=== PATIENT | male | born 1945 | race Caucasian/White ===

== ENCOUNTER 2017-03-13 15:58 | Emergency (ER) | payer OTHER ==
[2017-03-13 16:16] VITALS: TEMP 98
[2017-03-13 16:41] LABS: % IMMATURE GRANULYOCYTES 0.2 % (0.0-1.1); ABSOLUTE IMMATURE GRANULOCYTES 0.01 10^3/uL (0.00-0.10); ADD DIFF? NO; ADD MORPH? NO; ADD SCAN? NO; ATYPICAL LYMPHOCYTE FLAG 0 (0-99); FRAGMENT RBC FLAG 0 (0-99); HEMATOCRIT 42.6 % (40.0-51.0); HEMOGLOBIN 14.4 g/dL (13.7-17.5); LEFT SHIFT FLG 0 (0-99); LIPEMIA HEMOLYSIS FLAG 90 (0-99); MEAN CELL HEMOGLOBIN 30.8 pg (27.9-34.1); MEAN CELL HEMOGLOBIN CONCENTR. 33.8 g/dL (32.4-36.7); MEAN PLATELET VOLUME 8.8 fL (8.7-11.7); PLATELET CLUMPS FLAG 0 (0-99); PLATELET COUNT 154 10^3/uL (150-400); RED BLOOD CELL COUNT 4.68 10^6/uL (4.40-6.38); RED CELL DISTRIBUTION WIDTH 13.2 % (11.5-15.2)
--- NOTE | 2017-03-13 16:46 | CPEKG ---
Heart Rate: 60 RR Interval: 1000 P-R Interval: 164 QRSD Interval: 92 QT Interval: 436 QTC Interval: 436 P [place]: 48 QRS [place]: 46 T Wave [place]: 48 EKG Severity - NORMAL ECG - EKG Impression: SINUS RHYTHM Electronically Signed By: Lobito Santamaria 13-Mar-2017 18:49:30
[2017-03-13 16:47] LABS: CALCIUM 9.4 mg/dL (8.5-10.4); CREATININE 1.7 mg/dL (0.7-1.3); POTASSIUM 4.2 mEq/L (3.5-5.2)
--- NOTE | 2017-03-13 17:34 | EDPHY ---
H & P Stated Complaint: c/o inc. higher blood pressure over last month Time Seen by Provider: 03/13/17 16:20 HPI/ROS: This patient reports steady increase in his home monitoring of his blood pressure is. 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 In consultation with his primary care physician, Dr. Morejon while he stopped his lisinopril and amlodipine in June of this year and initially had normotensive blood pressure is 1 30s systolic but reports that over the past 2 months he has had steady gradual increase in his blood pressure is within average systolic pressure in January of 144 and over the past week has been steadily increasing with systolics from 150s up to a bit over 200. He does not careful record the diastolic pressures. He denies any associated somatic symptoms other than the longstanding intermittent lightheadedness. The patient has a significant history of vascular pathology including AAA with graft and iliac bypass is. 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 He reports compliance with this. ROS: No fevers or chills. No fatigue or other constitutional complaints. HEENT: No URI symptoms or other complaints Neuro: No headache. No focal complaints. No confusion Pulmonary: No dyspnea Cardiovascular: No chest pain. No heart palpitations. He reports some claudication symptoms in his lower extremity primarily left since his most recent iliac graft last year. No recent change in the severity of this which is mild. He continues to follow up with his vascular surgeon regarding the symptoms. No recent peripheral edema. GI: No complaints. No abdominal pain. No nausea. No rectal bleeding. : No hematuria. No flank pain. Integumentary: No rash. Endocrine: No complaints Complete review of symptoms is otherwise negative Source: Patient Exam Limitations: No limitations - Medical/Surgical History Hx Asthma: No Hx Chronic Respiratory Disease: No Hx Diabetes: No Hx Cardiac Disease: No Hx Renal Disease: No Hx Cirrhosis: No Hx Alcoholism: No Hx HIV/AIDS: No Hx Splenectomy or Spleen Trauma: No Other PMH: UTI'S, kidney stone with subsequent surgery for removal 07/2014, aortic embolism, embolism removal sugically, blood infection x 2, graft abscess, - Family History Significant Family History: No pertinent family hx - Social History Smoking Status: Former smoker Alcohol Use: Rarely Drug Use: None Additional Social History: The patient lives in a contemplative spiritual community. - Physical Exam Exam: Vital signs are notable for his hypertension-216/100 other vitals are normal General Appearance: Pleasant 71-year-old male appears younger than his stated age Alert, no distress. Eyes: Pupils equal and round no pallor or injection. ENT, Mouth: Mucous membranes moist. Respiratory: There are no retractions, lungs are clear to auscultation. Cardiovascular: Regular rate and rhythm. No murmur gallop rub. Patient maintains 2+ femoral pulses, popliteal pulses and dorsalis pedis pulses with no pallor in his lower extremities. Appreciate no significant pulsatile masses in his abdomen. Gastrointestinal: Abdomen is soft and nontender, no masses, bowel sounds normal. Surgical scars in mid and lower belly are clean dry intact. Neurological: GCS 15 with no focal deficits. Skin: Warm and dry, no rashes. Musculoskeletal: Neck is supple nontender. Extremities are symmetrical, full range of motion. Psychiatric: Mood and affect normal DIFFERENTIAL DIAGNOSIS: After history and physical exam differential diagnosis was considered for hypertensive urgency versus emergency. Constitutional: Initial Vital Signs Temperature (C) 36.6 C 03/13/17 16:14 Heart Rate 69 03/13/17 16:14 Respiratory Rate 18 03/13/17 16:14 Blood Pressure 216/99 H 03/13/17 16:14 O2 Sat (%) 97 03/13/17 16:14 O2 Delivery Mode Room Air Allergies/Adverse Reactions: No Known Allergies Allergy (Unverified 10/04/14 11:28) Home Medications: Medication Instructions Recorded Amoxil 03/13/17 Metoprolol Tartrate 25 mg PO BID #60 tablet 03/13/17 Medical Decision Making - Diagnostics EKG Interpretation: 12 lead EKG performed shortly after arrival indication hypertension rule out cardiac strain Performed at 4:44 p.m. Sinus rhythm at 60 Intervals: Normal throughout [place]: Normal throughout ST segments: Normal throughout Overall assessment normal EKG for complete read please refer to trace master ED Course/Re-evaluation: IV attempt was made blood was drawn but the IV blew. Patient declines further attempts at IV thereafter. Clonidine 0.2 sublingual with significant improvement in pressure is down to 130s over 80s thereafter. Medical decision making: I counseled patient regarding his lab work which reveals renal insufficiency with a creatinine of 1.7 today up from previous of 1.3. He had elevated BUNs in the past similarly today it is elevated in the high 40s. The patient admits that he typically does not drink enough fluids and feels that he might be mildly dehydrated. However he declines a repeat IV and normal saline bolus preferring oral hydration instead and finishes a large emesis container full of water without difficulty. I counseled him for 10-15 minutes regarding the importance of blood pressure control particularly with his history of AAA and vascular grafts. Given his renal insufficiency will use beta-giorgi rather than Warner inhibitor. I recommended that he start metoprolol 25 twice daily tomorrow as a starting point with close follow up with primary care physician this week for a recheck. After workup today, findings are consistent with hypertensive urgency without evidence of end-organ injury-no evidence of hypertensive emergency. While he does have mild renal insufficiency this is longstanding I think that the mild increase in his creatinine today is likely related to decreased p.o. fluid intake recently. The patient understands the need to return emergency department should he develop significant ongoing hypertension despite the metoprolol. He also understands the need to return should he develop any abdominal pain, back pain or other concerns - Data Points Laboratory Results: Laboratory Results 03/13/17 16:20 03/13/17 16:20 03/13/17 03/13/17 16:20 16:20 WBC 5.53 10^3/uL 10^3/uL (3.80-9.50) RBC 4.68 10^6/uL 10^6/uL (4.40-6.38) Hgb 14.4 g/dL g/dL (13.7-17.5) Hct 42.6 % % (40.0-51.0) MCV 91.0 fL fL (81.5-99.8) MCH 30.8 pg pg (27.9-34.1) MCHC 33.8 g/dL g/dL (32.4-36.7) RDW 13.2 % % (11.5-15.2) Plt Count 154 10^3/uL 10^3/uL (150-400) MPV 8.8 fL fL (8.7-11.7) Neut % (Auto) 60.8 % % (39.3-74.2) Lymph % (Auto) 27.3 % % (15.0-45.0) [place] % (Auto) 9.9 % % (4.5-13.0) Eos % (Auto) 1.6 % % (0.6-7.6) Baso % (Auto) 0.2 % L % (0.3-1.7) Nucleat RBC Rel Count 0.0 % % (0.0-0.2) Absolute Neuts (auto) 3.36 10^3/uL 10^3/uL (1.70-6.50) Absolute Lymphs (auto) 1.51 10^3/uL 10^3/uL (1.00-3.00) Absolute Monos (auto) 0.55 10^3/uL 10^3/uL (0.30-0.80) Absolute Eos (auto) 0.09 10^3/uL 10^3/uL (0.03-0.40) Absolute Basos (auto) 0.01 10^3/uL L 10^3/uL (0.02-0.10) Absolute Nucleated RBC 0.00 10^3/uL 10^3/uL (0-0.01) Immature Gran % 0.2 % % (0.0-1.1) Immature Gran # 0.01 10^3/uL 10^3/uL (0.00-0.10) Sodium 140 mEq/L mEq/L (134-144) Potassium 4.2 mEq/L mEq/L (3.5-5.2) Chloride 107 mEq/L mEq/L (97-110) Carbon Dioxide 22 mEq/l mEq/l (22-31) Anion Gap 11 mEq/L mEq/L (8-16) BUN 43 mg/dL H mg/dL (7-23) Creatinine 1.7 mg/dL H mg/dL (0.7-1.3) Estimated GFR 40 Glucose 89 mg/dL mg/dL (70-100) Calcium 9.4 mg/dL mg/dL (8.5-10.4) Medications Given: Discontinued Medications Clonidine ([place]) 0.2 mg PO EDNOW ONE Stop: 03/13/17 16:39 Last Admin: 03/13/17 16:46 Dose: 0.2 mg Departure - Departure Disposition: Home, Routine, Self-Care Clinical Impression: Hypertensive urgency, Renal insufficiency Condition: Good Instructions: Metoprolol (By mouth), Dehydration (ED), Hypertension (ED) Additional Instructions: Diagnoses: 1. Hypertension 2. Renal insufficiency Plan: Start metoprolol blood pressure medicine as prescribed 1st dose tomorrow morning Drink more fluids. Follow up at the end of the week with either someone in your primary care physician's office or with Dr. Jolley. Call these physicians tomorrow to arrange this appointment. You should also have a recheck of your BUN and creatinine at that time. Return the emergency department for any significant worsening despite the treatment plan Referrals: DEVORA MOREJON [Primary Care Provider] - As per Instructions Avelino Jolley MD [Medical Doctor] - As per Instructions Prescriptions: Metoprolol Tartrate 25 mg PO BID #60 tablet
[2017-03-13 17:46] VITALS: PULSE 57
[2017-03-13 18:27] VITALS: BP 142/75; RESP 16; O2SAT 97
== END 2017-03-13 17:38 | disposition home or self-care (01) ==
LOC: CED 15:58
DX: I16.0 Hypertensive urgency (principal); N28.9 Disorder of kidney and ureter, unspecified; Z87.891 Personal history of nicotine dependence
CPT/HCPCS: 80048-PO; 85025-PO

== ENCOUNTER 2017-05-19 16:45 | Emergency (ER) | payer OTHER ==
[2017-05-19 16:56] VITALS: TEMP 97.9
--- NOTE | 2017-05-19 17:46 | EDPHY ---
H & P Stated Complaint: epigastric burning and abd cramping/hx cardiac surgery Time Seen by Provider: 05/19/17 17:45 HPI/ROS: HPI: This is a 71-year-old male presents with Chief Complaint: epigastric burning and abd cramping/hx cardiac surgery Location: Epigastric Quality: Burning pain Duration: Started at 5:15 a.m. Signs and Symptoms: no fever, + nausea, no vomiting, no hematemesis, no blood in stool, no abdominal bloating, no diarrhea, no back pain, no urinary symptoms , no testicular/groin pain, no indigestion, no chest pain, no shortness of breath Timing: Acute, lasted several hours, resolved after Zantac Severity: Moderate Context: Patient has a history of aortic embolism and thrombectomy, taking statin blood pressure medications, woke up around 5:15 a.m. with epigastric burning moderate pain that radiated down into his groin but denies radiating into his back. Accompanied by nausea but denies chest pain/shortness of breath/ palpitations/extremity edema/vomiting. He reports that he had a salmon salad for yesterday for lunch with citrus and it that he reports upset his stomach. He called his PCP this afternoon around 1 o'clock in the advised him to take full-strength Zantac which he did he reports that his symptoms resolved within 30 min. No prior history of GERD/peptic ulcer disease. Patient reports that he eat 3 meals yesterday and was able to be aches this morning around 9:00 a.m. without any difficulty. He saw his osteopathic physician 1-2 weeks ago and had normal carotid ultrasound and echocardiogram per patient. Records are not available to us in this emergency room. Patient has never had any cardiac history/stress test/CO. Accidentally patient reports that he has not had a good bowel movement today; only small hard balls. Patient takes baby aspirin daily but did not take today. Denies regular NSAID use or regular alcohol use. Modifying Factors: Zantac Comment: ROS: see HPI Constitutional: No fever, no chills, no weight loss Eyes: No blurred vision Respiratory: No shortness of breath, no cough Cardiovascular: No chest pain, no palpitations Gastrointestinal: No nausea, no vomiting, no diarrhea, no hematemesis, no blood in stool Genitourinary: No dysuria, no blood in urine Extremities: No myalgias, no edema Neurologic: No weakness, no numbness Skin: No rashes, no petechiae Hematologic: No bruising, no bleeding MEDICAL/SURGICAL/SOCIAL HISTORY: Medical/surgical history: UTI'S, kidney stone with subsequent surgery for removal 07/2014, aortic embolism, embolism removal sugically, blood infection x 2 , graft abscess, pseudomonas Social history: Unemployed. CONSTITUTIONAL: Nontoxic appearing talkative pleasant soft spoken elderly white male, awake and alert, no obvious distress HEENT: Atraumatic and normocephalic, PERRL, EOMI. Tympanic membranes clear. Oropharynx clear, no exudate and moist pink mucosa. Airway patent. No lymphadenopathy. No meningismus. Cardiovascular: Normal S1/S2, regular rate, regular rhythm, without murmur rub or gallop. PULMONARY/CHEST: Symmetrical and nontender. Clear to auscultation bilaterally. Good air movement. No accessory muscle usage. ABDOMEN: Soft, nondistended, nontender, no rebound, no guarding, no peritoneal signs, no masses or organomegaly. No CVAT. EXTREMITIES: 2/2 pulses, strength 5/5, no deformities, no clubbing, no cyanosis or edema. NEUROLOGICAL: no focal neuro deficits. GCS 15. SKIN: Warm and dry, no erythema. no rash. Good capillary refill. Source: Patient Exam Limitations: No limitations - Personal History Current Tetanus/Diphtheria Vaccine: Unsure - Medical/Surgical History Hx Asthma: No Hx Chronic Respiratory Disease: No Hx Diabetes: No Hx Cardiac Disease: Yes Hx Renal Disease: No Hx Cirrhosis: No Hx Alcoholism: No Hx HIV/AIDS: No Hx Splenectomy or Spleen Trauma: No Other PMH: UTI'S, kidney stone with subsequent surgery for removal 07/2014, aortic embolism, embolism removal sugically, blood infection x 2, graft abscess , pseudomonas - Social History Smoking Status: Former smoker Constitutional: Initial Vital Signs Temperature (C) 36.6 C 05/19/17 16:54 Heart Rate 65 05/19/17 16:54 Respiratory Rate 18 05/19/17 16:54 Blood Pressure 169/66 H 05/19/17 16:54 O2 Sat (%) 98 05/19/17 16:54 O2 Delivery Mode Room Air Allergies/Adverse Reactions: No Known Allergies Allergy (Verified 05/19/17 16:51) Home Medications: Medication Instructions Recorded Metoprolol Tartrate 25 mg PO BID #60 tablet 03/13/17 Bystolic 05/19/17 Levothyroxine 05/19/17 Lisinopril 05/19/17 Moxifloxacin 05/19/17 Pantoprazole Sodium [Protonix 40mg 40 mg PO DAILY #20 tab 05/19/17 (*)] Zantac 05/19/17 Zocor 05/19/17 Medical Decision Making - Diagnostics Imaging Results: Imaging Impressions Chest X-Ray 05/19/17 17:46 Impression: No evidence for acute cardiopulmonary abnormality. Abdomen X-Ray 05/19/17 18:01 Impression: Constipation. Possible ileus left mid abdomen. Chest/Thorax CTA 05/19/17 18:58 Impression: 1. No evidence of pulmonary thromboembolic disease. 2. Mild atelectasis right lung base. 3. Mild chronic anterior wedge compression deformity of a couple lower thoracic vertebral bodies. 4. Evidence of atherosclerotic disease coronary arteries. Results called and discussed with Yee Castellon PA-C, on May 19, 2017 at 1940. ED Course/Re-evaluation: EKG, chest x-ray, labs, IV medications, oral medications ordered Suspect gastritis/peptic ulcer disease as etiology of epigastric pain. Given IV Protonix and GI cocktail Patient's chest pain started approximately 12 hr prior arrival to the emergency room and has self-resolved a with Zantac use; not PCI candidate JOVANNY risk index is low risk for acute coronary syndrome with low risk for 30 day mortality EKG shows no acute ischemic changes Troponin, BNP unremarkable D-dimer elevated; CTA ordered to evaluate for pulmonary embolism Creatinine 1.5; 1 L normal saline ordered; spoke with education technician; will notify once 1 L an and then will order another 1 L post contrast Care by Radiology and CTA chest shows no pulmonary embolism; mild right lower lobe atelectasis but no opacity indicating pneumonia. Second troponin unremarkable. Discharge home with Cardiology follow-up, start Protonix, GERD diet. Blood pressure at discharge was 168/98 This patient was seen under the supervision of my secondary supervising physician. I evaluated care for this patient independently. Discussed this patient with Dr. Pickens who did not see the patient. Patient's presentation, labs/imaging, treatment and plan of care were discussed with secondary supervising physician. Differential Diagnosis: Abdominal pain including but not limited to acute coronary syndrome, pulmonary embolism, peptic ulcer disease, hiatal hernia, appendicitis, cholecystitis, gastritis and urinary tract infection. - Data Points Laboratory Results: Laboratory Results 05/19/17 18:00 05/19/17 18:00 05/19/17 05/19/17 05/19/17 20:05 18:00 18:00 WBC RBC Hgb Hct MCV MCH MCHC RDW Plt Count MPV Neut % (Auto) Lymph % (Auto) [place] % (Auto) Eos % (Auto) Baso % (Auto) Nucleat RBC Rel Count Absolute Neuts (auto) Absolute Lymphs (auto) Absolute Monos (auto) Absolute Eos (auto) Absolute Basos (auto) Absolute Nucleated RBC Immature Gran % Immature Gran # PT 14.1 SEC SEC (12.0-15.0) INR 1.07 (0.83-1.16) APTT 25.8 SEC SEC (23.0-38.0) D-Dimer 7.63 ug/mLFEU H ug/mLFEU (0.00-0.50) Sodium 145 mEq/L mEq/L (135-145) Potassium 5.0 mEq/L mEq/L (3.5-5.2) Chloride 111 mEq/L H mEq/L (97-110) Carbon Dioxide 19 mEq/l L mEq/l (22-31) Anion Gap 15 mEq/L mEq/L (8-16) BUN 36 mg/dL H mg/dL (7-23) Creatinine 1.5 mg/dL H mg/dL (0.7-1.3) Estimated GFR 46 Glucose 96 mg/dL mg/dL (70-100) Calcium 9.3 mg/dL mg/dL (8.5-10.4) Magnesium 2.2 mg/dL mg/dL (1.6-2.3) Total Bilirubin 1.1 mg/dL mg/dL (0.1-1.4) Conjugated Bilirubin 0.4 mg/dL mg/dL (0.0-0.5) Unconjugated Bilirubin 0.7 mg/dL mg/dL (0.0-1.1) AST 23 IU/L IU/L (17-59) ALT 35 IU/L IU/L (21-72) Alkaline Phosphatase 74 IU/L IU/L (38-126) Troponin I < 0.012 ng/mL ng/mL < 0.012 ng/mL ng/mL (0.000-0.034) (0.000-0.034) NT-Pro-B Natriuret Pep 343 pg/mL H pg/mL (0-125) Total Protein 7.4 g/dL g/dL (6.3-8.2) Albumin 4.5 g/dL g/dL (3.5-5.0) Lipase 59 IU/L IU/L (23-300) 05/19/17 18:00 WBC 7.92 10^3/uL 10^3/uL (3.80-9.50) RBC 4.86 10^6/uL 10^6/uL (4.40-6.38) Hgb 14.7 g/dL g/dL (13.7-17.5) Hct 44.0 % % (40.0-51.0) MCV 90.5 fL fL (81.5-99.8) MCH 30.2 pg pg (27.9-34.1) MCHC 33.4 g/dL g/dL (32.4-36.7) RDW 12.8 % % (11.5-15.2) Plt Count 142 10^3/uL L 10^3/uL (150-400) MPV 9.2 fL fL (8.7-11.7) Neut % (Auto) 74.3 % H % (39.3-74.2) Lymph % (Auto) 16.7 % % (15.0-45.0) [place] % (Auto) 8.2 % % (4.5-13.0) Eos % (Auto) 0.4 % L % (0.6-7.6) Baso % (Auto) 0.1 % L % (0.3-1.7) Nucleat RBC Rel Count 0.0 % % (0.0-0.2) Absolute Neuts (auto) 5.89 10^3/uL 10^3/uL (1.70-6.50) Absolute Lymphs (auto) 1.32 10^3/uL 10^3/uL (1.00-3.00) Absolute Monos (auto) 0.65 10^3/uL 10^3/uL (0.30-0.80) Absolute Eos (auto) 0.03 10^3/uL 10^3/uL (0.03-0.40) Absolute Basos (auto) 0.01 10^3/uL L 10^3/uL (0.02-0.10) Absolute Nucleated RBC 0.00 10^3/uL 10^3/uL (0-0.01) Immature Gran % 0.3 % % (0.0-1.1) Immature Gran # 0.02 10^3/uL 10^3/uL (0.00-0.10) PT INR APTT D-Dimer Sodium Potassium Chloride Carbon Dioxide Anion Gap BUN Creatinine Estimated GFR Glucose Calcium Magnesium Total Bilirubin Conjugated Bilirubin Unconjugated Bilirubin AST ALT Alkaline Phosphatase Troponin I NT-Pro-B Natriuret Pep Total Protein Albumin Lipase Medications Given: Discontinued Medications Al Hydroxide/Mg Hydroxide (Maalox Susp) 30 ml PO ONCE ONE Stop: 05/19/17 17:57 Last Admin: 05/19/17 18:04 Dose: 30 ml Hyoscyamine Sulfate (Levsin, Hyomax-Sl) 0.25 mg PO ONCE ONE Stop: 05/19/17 17:57 Last Admin: 05/19/17 18:04 Dose: 0.25 mg Sodium Chloride (Ns) 1,000 mls @ 0 mls/hr IV EDNOW ONE; Wide [place] PRN Reason: Protocol Stop: 05/19/17 18:18 Last Admin: 05/19/17 18:34 Dose: 1,000 mls Sodium Chloride (Ns) 1,000 mls @ 0 mls/hr IV EDNOW ONE; [place] PRN Reason: Protocol Stop: 05/19/17 19:38 Last Admin: 05/19/17 20:00 Dose: 1,000 mls Lidocaine (Lidocaine 2% Viscous) 15 ml PO ONCE ONE Stop: 05/19/17 17:57 Last Admin: 05/19/17 18:04 Dose: 15 ml Pantoprazole Sodium (Protonix) 40 mg IVP EDNOW ONE Stop: 05/19/17 17:57 Last Admin: 05/19/17 18:04 Dose: 40 mg Departure - Departure Disposition: Home, Routine, Self-Care Clinical Impression: Atypical chest pain GERD (gastroesophageal reflux disease) Qualifiers: Esophagitis presence: esophagitis presence not specified Qualified Code(s): K21.9 - Gastro-esophageal reflux disease without esophagitis Condition: Good Instructions: Chest Pain (ED), Gastroesophageal Reflux Disease (ED) Additional Instructions: Please make an outpatient follow-up with Cardiology in the next 1-2 weeks. You would benefit from a nuclear stress test. Please observe GERD diet and decreased stress. Start taking Protonix or Nexium daily. Take blood pressure daily and keep a journal to give to your primary care provider. Please follow up with your primary care provider next week. Referrals: DEVORA GAITAN [Primary Care Provider] - As per Instructions Pawan Erazo MD [Medical Doctor] - As per Instructions Prescriptions: Pantoprazole Sodium [Protonix 40mg (*)] 40 mg PO DAILY #20 tab
[2017-05-19] MEDS ORDERED: HYOSCYAMINE SULFATE 0.125 MG TAB PO ONE (17:56)
[2017-05-19] MEDS ORDERED: PANTOPRAZOLE SODIUM 40 MG VIAL IVP ONE (17:56)
[2017-05-19] MEDS ORDERED: MAG HYDROX/AL HYDROX/SIMETH 30 ML UDCUP PO ONE (17:56)
[2017-05-19] MEDS ORDERED: LIDOCAINE 2% VISCOUS 15 ML UDCUP PO ONE (17:56)
[2017-05-19 18:04] LABS: PLATELET COUNT 142 10^3/uL (150-400)
[2017-05-19 18:13] LABS: INR 1.07 (0.83-1.16); PROTIME(PATIENT) 14.1 SEC (12.0-15.0)
[2017-05-19] MEDS ORDERED: NS 1,000 ML IV ONE ×2 (18:17→19:37)
--- NOTE | 2017-05-19 18:33 | CPEKG ---
Heart Rate: 60 RR Interval: 1000 P-R Interval: 160 QRSD Interval: 94 QT Interval: 436 QTC Interval: 436 P [place]: 51 QRS [place]: 30 T Wave [place]: 46 EKG Severity - NORMAL ECG - EKG Impression: SINUS RHYTHM Electronically Signed By: Andrez Hess 22-May-2017 06:10:31
[2017-05-19] MEDS ORDERED: IOPAMIDOL (ISOVUE 370) 100 ML BTL IV ONE (19:07)
[2017-05-19 20:04] VITALS: BP 198/83; RESP 16
[2017-05-19 20:05] VITALS: PULSE 61; O2SAT 95
== END 2017-05-19 20:56 | disposition home or self-care (01) ==
DX: K21.9 Gastro-esophageal reflux disease without esophagitis (principal); E86.9 Volume depletion, unspecified; Z87.891 Personal history of nicotine dependence
CPT/HCPCS: 71046; 71275; 74019; 93005; 96361; 96374; 99285; Q9967

== ENCOUNTER → 2018-04-20 | Outpatient (CLI) | payer OTHER ==
[~2018-04-20] MED LIST: IOPAMIDOL (ISOVUE 370) 100 ML BTL IV ONE
== END ==
LOC: FIMAGING 12:52
PROVIDERS: ATTEND Internal Medicine Cardiovascular Disease
DX: I73.9 Peripheral vascular disease, unspecified (principal)
CPT/HCPCS: Q9967 ×2; 82565-PO

== ENCOUNTER → 2018-04-30 | Outpatient (CLI) | payer OTHER | LOC: FIMAGING 12:48 | PROVIDERS: ATTEND Internal Medicine Cardiovascular Disease | DX: I72.4 Aneurysm of artery of lower extremity (principal); I77.1 Stricture of artery ==